=== PATIENT | male | born 1990 | race Caucasian/White ===

== ENCOUNTER 2024-05-06 19:37 | Emergency (ER) | payer OTHER ==
[2024-05-06] MEDS: Proparacaine 0.5% Ophth Soln 15 ML Bottle EYEBOTH STA (20:31)
== END 2024-05-06 20:52 | disposition home or self-care (01) ==
LOC: JP.ED 19:37
DX: H10.32 Unspecified acute conjunctivitis, left eye (principal); F17.210 Nicotine dependence, cigarettes, uncomplicated; Z79.899 Other long term (current) drug therapy
CPT/HCPCS: 99283; A9270